=== PATIENT | male | born 1945 | race Asian ===

== ENCOUNTER 2020-12-06 06:27 | Day surgery (SDC) | payer MEDICARE, BC ==
[~2020-12-06] VITALS: Ht 182.9 cm; Wt 79.4 kg
[2020-12-06] MEDS ORDERED: SODIUM CHLORIDE 0.9% 1,000 ML IV ONE (07:00)
[2020-12-06 07:07] LABS: COVID AG,FIA SOURCE NASOPHARYNGEAL
[2020-12-06 07:21] LABS: BASOPHILS % (AUTO) 0.2 % (0.0-2.0); EOSINOPHILS % (AUTO) 1.1 % (1.0-6.0); HEMATOCRIT 49.2 % (41-53); HEMOGLOBIN 16.4 g/dL (13.5-17.5); LYMPHOCYTES # (AUTO) 1.2 K/uL (1.0-4.8); MEAN CORPUSCULAR HEMOGLOBIN 31.4 pg (26.0-34.0); MEAN CORPUSCULAR HGB CONC 33.4 G/dL (31.0-37.0); MEAN CORPUSCULAR VOLUME 94 fL (80-100); MONOCYTES # (AUTO) 0.4 K/uL (0.1-1.0); MONOCYTES % (AUTO) 6.8 % (2.0-9.0); NEUTROPHILS # (AUTO) 4.8 K/uL (1.8-7.7); NEUTROPHILS % (AUTO) 73.9 % (40.0-70.0); PLATELET COUNT (AUTO) 205 K/uL (150-450); RED BLOOD CELL COUNT(AUTO) 5.23 MIL/uL (4.50-5.90); RED CELL DISTRIBUTION WIDTH 12.4 % (11.5-14.5)
[2020-12-06 07:30] LABS: ANION GAP 6 mmol/L (8-16); CALCIUM, TOTAL 8.8 mg/dL (8.8-10.5); CARBON DIOXIDE 29 mmol/L (22-29); CHLORIDE 108 mmol/L (98-107); CREATININE 1.13 mg/dL (0.60-1.30); GLOMERULAR FILTR. RATE CALC > 60 mL/min (>60); GLUCOSE,RANDOM 118 mg/dL (70-110); POTASSIUM 4.5 mmol/L (3.5-5.1); SODIUM SERUM 143 mmol/L (136-145); UREA NITROGEN, BLOOD 15 mg/dL (7-18)
[2020-12-06] MEDS ORDERED: SODIUM CHLORIDE 0.9% 1,000 ML IV SCH (07:30)
[2020-12-06] MEDS ORDERED: ASPIRIN 325 MG TABLET PO ONE (07:30)
[2020-12-06 07:34] LABS: PROTHROMBIN TIME 10.7 SEC (9.4-11.6)
[2020-12-06 07:36] LABS: ALANINE AMINOTRANSFERASE 102 U/L (12-78); ALKALINE PHOSPHATASE 75 U/L (46-116); ASPARTATE AMINOTRANSFERASE 42 U/L (15-37); BILIRUBIN,TOTAL 0.9 mg/dL (0.1-1.0); TOTAL PROTEIN, SERUM 7.7 g/dL (6.4-8.2)
[2020-12-06] MEDS ORDERED: DiphenhydrAMINE HCL 50 MG CAPSULE ONE (08:18)
[2020-12-06] MEDS ORDERED: DIAZEPAM 5 MG TABLET ONE (08:18)
[2020-12-06] MEDS ORDERED: ASPIRIN 81 MG CHEWABLE TABLET ONE (08:19)
[2020-12-06] MEDS ORDERED: ROSU20TA73 PO (08:28)
[2020-12-06] MEDS ORDERED: RAMI2.5C55 PO (08:28)
[2020-12-06] MEDS ORDERED: EZET10TA57 PO (08:28)
[2020-12-06] MEDS ORDERED: ASPI-989 PO (08:28)
[2020-12-06] MEDS ORDERED: ATEN-72 PO (08:28)
[2020-12-06] MEDS ORDERED: CLOP75TA60 PO (08:28)
[2020-12-06] MEDS ORDERED: RANO500T3 PO (08:28)
[2020-12-06] MEDS ORDERED: SODIUM BICARBONATE 50 MEQ/50 ML VIAL ONE (08:30)
[2020-12-06] MEDS ORDERED: IOHEXOL 300 MG/ML 50 ML VIAL ONE (08:30)
[2020-12-06] MEDS ORDERED: IOHEXOL 300 MG/ML 150 ML VIAL ONE (08:30)
[2020-12-06] MEDS ORDERED: LIDOCAINE/PF 1% 30 ML VIAL ONE (08:30)
[2020-12-06] MEDS ORDERED: IOHEXOL 300 MG/ML 100 ML VIAL ONE ×2 (08:30→09:54)
[2020-12-06] MEDS ORDERED: HEPARIN SODIUM 1000 UNITS/NS 1,000 ML ONE (08:30)
[2020-12-06] MEDS ORDERED: MIDAZOLAM HCL 2 MG/2 ML VIAL ONE ×3 (09:05→09:56)
[2020-12-06] MEDS ORDERED: FentaNYL CITRATE PF 100 MCG/2 ML VIAL ONE ×3 (09:05→09:56)
[2020-12-06 09:07] VITALS: BP 137/70
[2020-12-06] MEDS ORDERED: LIDOCAINE 1% 30 ML/SOD BICARB 8.4% 4 ML SQ ONE (09:15)
[2020-12-06] MEDS ORDERED: IOHEXOL 300 MG/ML 150 ML VIAL IARTER ONE (09:15)
[2020-12-06] MEDS ORDERED: MIDAZOLAM HCL 2 MG/2 ML VIAL IVP ONE ×6 (09:15→10:15)
[2020-12-06] MEDS ORDERED: HEPARIN SODIUM 1000 UNITS/NS 1,000 ML IARTER ONE (09:15)
[2020-12-06] MEDS ORDERED: FentaNYL CITRATE PF 100 MCG/2 ML VIAL IVP ONE ×6 (09:15→10:15)
[2020-12-06] MEDS ORDERED: HEPARIN SODIUM,PORCINE 5,000 UNITS/ML VIAL IVP ONE (09:30)
[2020-12-06] MEDS ORDERED: TICAGRELOR 90 MG TABLET ONE (09:45)
[2020-12-06] MEDS ORDERED: DiphenhydrAMINE HCL 50 MG/ML VIAL ONE (09:59)
[2020-12-06] MEDS ORDERED: TICAGRELOR 90 MG TABLET PO ONE (10:00)
[2020-12-06] MEDS ORDERED: DiphenhydrAMINE HCL 50 MG/ML VIAL IVP ONE (10:00)
[2020-12-06] MEDS ORDERED: IOHEXOL 300 MG/ML 100 ML VIAL IARTER ONE (10:30)
[2020-12-06] MEDS ORDERED: IOHEXOL 300 MG/ML 50 ML VIAL IARTER ONE (10:30)
[2020-12-06 10:37] VITALS: BP 116/61
== END 2020-12-06 15:05 | disposition home or self-care (01) ==
LOC: CATHLAB 06:27
PROVIDERS: ATTEND Internal Medicine Interventional Cardiology
DX: R07.9 Chest pain, unspecified (principal); T82.855A Stenosis of coronary artery stent, initial encounter; I25.10 Atherosclerotic heart disease of native coronary artery without angina pectoris; Y83.8 Other surgical procedures as the cause of abnormal reaction of the patient, or of later complication, without mention of misadventure at the time of the procedure; Z88.1 Allergy status to other antibiotic agents; Z95.1 Presence of aortocoronary bypass graft; Z98.890 Other specified postprocedural states; Z79.899 Other long term (current) drug therapy
CPT/HCPCS: 36415; 80053; 85025; 85610; 85730; 87426; 92920; 93005; 93459; 99152; 99153; C1760; C1874; C1887; C9600; C9803; J1200; J1644; J2250; J3010; J3490 ×2; J7030; Q9967 ×3; 37236; 92921; 92928

== ENCOUNTER 2022-03-13 05:50 | Day surgery (SDC) | payer MEDICARE, BC ==
[~2022-03-13 05:50] MED LIST: ASPI-989 PO; ASPIRIN 81 MG CHEWABLE TABLET ONE; ATEN-72 PO; CLOP75TA60 PO; DIAZEPAM 5 MG TABLET ONE; DiphenhydrAMINE HCL 50 MG CAPSULE ONE; EZET10TA57 PO; RAMI2.5C55 PO; RANO500T3 PO; ROSU20TA73 PO; SODIUM CHLORIDE 0.9% 1,000 ML ONE
[2022-03-13 06:33] LABS: BASOPHILS % (AUTO) 0.2 % (0.0-2.0); EOSINOPHILS % (AUTO) 0.5 % (1.0-6.0); HEMATOCRIT 47.4 % (41-53); LYMPHOCYTES # (AUTO) 0.9 K/uL (1.0-4.8); LYMPHOCYTES % (AUTO) 8.7 % (22.0-44.0); MEAN CORPUSCULAR HEMOGLOBIN 31.1 pg (26.0-34.0); MEAN CORPUSCULAR HGB CONC 33.9 G/dL (31.0-37.0); MEAN CORPUSCULAR VOLUME 92 fL (80-100); MONOCYTES # (AUTO) 0.7 K/uL (0.1-1.0); MONOCYTES % (AUTO) 6.6 % (2.0-9.0); NEUTROPHILS # (AUTO) 8.9 K/uL (1.8-7.7); PLATELET COUNT (AUTO) 243 K/uL (150-450); RED BLOOD CELL COUNT(AUTO) 5.15 MIL/uL (4.50-5.90); RED CELL DISTRIBUTION WIDTH 12.3 % (11.5-14.5)
[2022-03-13 06:42] LABS: ANION GAP 4 mmol/L (8-16); CALCIUM, TOTAL 9.3 mg/dL (8.8-10.5); CARBON DIOXIDE 30 mmol/L (22-29); CHLORIDE 102 mmol/L (98-107); CREATININE 1.17 mg/dL (0.60-1.30); GLUCOSE,RANDOM 130 mg/dL (70-110); POTASSIUM 4.1 mmol/L (3.5-5.1); SODIUM SERUM 136 mmol/L (136-145); UREA NITROGEN, BLOOD 14 mg/dL (7-18)
[2022-03-13 06:44] LABS: PROTHROMBIN TIME 10.4 SEC (9.4-11.6)
[2022-03-13 06:45] LABS: GLOMERULAR FILTR. RATE CALC > 60 mL/min (>60)
[2022-03-13] MEDS ORDERED: SODIUM CHLORIDE 0.9% 1,000 ML IV ONE ×2 (07:00→09:00)
[2022-03-13] MEDS ORDERED: SODIUM BICARBONATE 50 MEQ/50 ML VIAL ONE (07:06)
[2022-03-13] MEDS ORDERED: LIDOCAINE/PF 1% 30 ML VIAL ONE (07:06)
[2022-03-13] MEDS ORDERED: HEPARIN SODIUM 1000 UNITS/NS 1,000 ML ONE (07:07)
[2022-03-13] MEDS ORDERED: IOHEXOL 300 MG/ML 100 ML VIAL ONE ×2 (07:07→08:19)
[2022-03-13 07:33] VITALS: BP 135/67
[2022-03-13] MEDS ORDERED: MIDAZOLAM HCL 2 MG/2 ML VIAL ONE ×2 (07:43→08:19)
[2022-03-13] MEDS ORDERED: FentaNYL CITRATE PF 100 MCG/2 ML VIAL ONE ×2 (07:43→08:18)
[2022-03-13] MEDS ORDERED: FentaNYL CITRATE PF 100 MCG/2 ML VIAL IVP ONE ×3 (08:00→08:30)
[2022-03-13] MEDS ORDERED: LIDOCAINE 1% 30 ML/SOD BICARB 8.4% 4 ML SQ ONE (08:00)
[2022-03-13] MEDS ORDERED: MIDAZOLAM HCL 2 MG/2 ML VIAL IVP ONE ×3 (08:00→08:30)
[2022-03-13] MEDS ORDERED: IOHEXOL 300 MG/ML 100 ML VIAL IARTER ONE ×2 (08:00→08:30)
[2022-03-13] MEDS ORDERED: HEPARIN SODIUM 1000 UNITS/NS 1,000 ML IARTER ONE (08:00)
[2022-03-13] MEDS ORDERED: NITROGLYCERIN 50 MG/D5% WATER 0 ML ONE (08:29)
[2022-03-13] MEDS ORDERED: HEPARIN SODIUM,PORCINE 1,000 UNITS/ML 10 ML VIAL IVP ONE (08:30)
[2022-03-13 08:43] VITALS: BP 116/65
[2022-03-13] MEDS ORDERED: CLOPIDOGREL BISULFATE 300 MG TABLET ONE (08:46)
[2022-03-13] MEDS ORDERED: ASPIRIN 81 MG CHEWABLE TABLET PO ONE (09:00)
[2022-03-13] MEDS ORDERED: DIAZEPAM 5 MG TABLET PO ONE (09:00)
[2022-03-13] MEDS ORDERED: DiphenhydrAMINE HCL 50 MG CAPSULE PO ONE (09:00)
[2022-03-13] MEDS ORDERED: CLOPIDOGREL BISULFATE 300 MG TABLET PO ONE (09:00)
[2022-03-13] MEDS ORDERED: ISOS30TA11 PO (15:25)
== END 2022-03-13 15:15 | disposition home or self-care (01) ==
LOC: CATHLAB 05:50
PROVIDERS: ATTEND Internal Medicine Interventional Cardiology
DX: R94.39 Abnormal result of other cardiovascular function study (principal); I25.110 Atherosclerotic heart disease of native coronary artery with unstable angina pectoris; M19.90 Unspecified osteoarthritis, unspecified site; E78.2 Mixed hyperlipidemia; I25.10 Atherosclerotic heart disease of native coronary artery without angina pectoris; I10 Essential (primary) hypertension; T82.855A Stenosis of coronary artery stent, initial encounter; Y83.8 Other surgical procedures as the cause of abnormal reaction of the patient, or of later complication, without mention of misadventure at the time of the procedure; Z87.891 Personal history of nicotine dependence; Z98.890 Other specified postprocedural states; Z79.899 Other long term (current) drug therapy; Z88.1 Allergy status to other antibiotic agents
CPT/HCPCS: 80048; 85025; 85610; 85730; 36415; 99152; 99153; 93005; 93459; C9600; C1887; C1760; C1874; J3010; J1644; J3490 ×2; J2250; J7030; Q9967; 92920; 92928